=== PATIENT | female | born 1940 | race Caucasian/White ===

== ENCOUNTER → 2016-11-30 | Outpatient (CLI) | payer OTHER, MEDICARE | LOC: FIMAGING 08:00 | PROVIDERS: ATTEND Internal Medicine | DX: K57.30 Diverticulosis of large intestine without perforation or abscess without bleeding (principal); N32.89 Other specified disorders of bladder; R91.1 Solitary pulmonary nodule; Z90.710 Acquired absence of both cervix and uterus; Z90.49 Acquired absence of other specified parts of digestive tract ==

== ENCOUNTER → 2017-02-05 | Outpatient (CLI) | payer OTHER, MEDICARE | LOC: CIMAGING 12:50 | PROVIDERS: ATTEND Internal Medicine | DX: N63 Unspecified lump in breast (principal); Z79.890 Hormone replacement therapy; Z80.3 Family history of malignant neoplasm of breast | CPT/HCPCS: 76641; G0204 ==

== ENCOUNTER → 2017-03-15 | Outpatient (CLI) | payer OTHER, MEDICARE | LOC: CIMAGING 13:49 → EDSTATUS 13:51 → CIMAGING 13:52 | PROVIDERS: ATTEND Internal Medicine | DX: R05 Cough (principal); R10.31 Right lower quadrant pain; K52.9 Noninfective gastroenteritis and colitis, unspecified | CPT/HCPCS: 71020; G0463 ==

== ENCOUNTER → 2017-04-20 | Outpatient (CLI) | payer OTHER, MEDICARE | LOC: FIMAGING 10:16 | PROVIDERS: ATTEND Physical Medicine & Rehabilitation | DX: M51.36 Other intervertebral disc degeneration, lumbar region (principal); M12.88 Other specific arthropathies, not elsewhere classified, other specified site; M51.26 Other intervertebral disc displacement, lumbar region ==

== ENCOUNTER 2017-04-28 10:21 | Emergency (ER) | payer OTHER, MEDICARE ==
[2017-04-28] MEDS ORDERED: LIDOCAINE 5% 1 EA PATCH TD ONE (11:08)
--- NOTE | 2017-04-28 11:17 | EDPHY ---
H & P Stated Complaint: back pain-diagnosed with bulging disk recently Time Seen by Provider: 04/28/17 10:43 HPI/ROS: CHIEF COMPLAINT: Ongoing low back pain HISTORY OF PRESENT ILLNESS: The patient presents to the ED with ongoing low back pain. The patient does have a history of multiple spinal surgeries. The patient was recently diagnosed with a lumbar disc herniation at L1. The patient has had fairly severe pain in her left sacroiliac joint. She denies any acute numbness or weakness. The patient is currently under the care of [facility]. The patient denies bowel or bladder dysfunction. The patient denies fever or infectious symptoms. The patient reports her symptoms are moderate to severe in nature. REVIEW OF SYSTEMS: A comprehensive 10 point review of systems is otherwise negative aside from elements mentioned in the history of present illness. Source: Patient Exam Limitations: No limitations - Personal History Current Tetanus/Diphtheria Vaccine: Yes Current Tetanus Diphtheria and Acellular Pertussis (TDAP): Yes Tetanus Vaccine Date: 2010 - Medical/Surgical History Hx Asthma: Yes Hx Chronic Respiratory Disease: No Hx Diabetes: No Hx Cardiac Disease: No Hx Renal Disease: No Hx Cirrhosis: No Hx Alcoholism: No Hx HIV/AIDS: No Hx Splenectomy or Spleen Trauma: No Other PMH: Asthma very mild recently dx,osteoarthritis, closed head [id number]. right and left hammer toe surgery and has currently a left foot infection and has pin in both feet had MRSA, pt has fibromyalgia. TONSILS. APPY. HYST. THROAT POLYPS. KIDNEY STONES. BREAST REDUCTION. BACK SURGS. ROTATOR CUFF. BLADDER LIFT, MESH. GB. HEMORRHOIDS. CATERACTS. HERNIA - Social History Smoking Status: Former smoker - Physical Exam Exam: General Appearance: Elderly female, no acute distress Eyes: Pupils equal and round no pallor or injection ENT, Mouth: Mucous membranes moist Respiratory: There are no retractions, lungs are clear to auscultation Cardiovascular: Regular rate and rhythm Gastrointestinal: Abdomen is soft and nontender, no masses, bowel sounds normal Neurological: 5/5 strength noted bilateral lower extremities Skin: Warm and dry, no rashes, multiple tattoos Musculoskeletal: Tenderness to palpation noted in the left sacroiliac area, prior lumbar incision clean dry and intact Extremities: symmetrical, full range of motion Constitutional: Initial Vital Signs Temperature (C) 36.8 C 04/28/17 10:29 Heart Rate 91 04/28/17 10:29 Respiratory Rate 18 04/28/17 10:29 Blood Pressure 121/83 H 04/28/17 10:29 O2 Sat (%) 96 04/28/17 10:29 O2 Delivery Mode Room Air Allergies/Adverse Reactions: codeine [Codeine] Allergy (Severe, Verified 04/28/17 10:28) Rash erythromycin base [Erythromycin Base] Allergy (Severe, Verified 04/28/17 10:28) Rash hydromorphone HCl [From Dilaudid] Allergy (Severe, Verified 04/28/17 10:28) "Makes Me Crazy" iodine [Iodine] Allergy (Severe, Verified 04/28/17 10:28) Anaphylaxis morphine Allergy (Severe, Verified 04/28/17 10:28) "Can't Breathe" Shellfish *RETIRED-03/11/12 [Shellfish] Allergy (Severe, Verified 04/28/17 10:28 ) Anaphylaxis vancomycin Allergy (Severe, Verified 04/28/17 10:28) Loss of consciousness meperidine HCl [From Demerol] Allergy (Verified 04/28/17 10:28) mycins Allergy (Severe, Uncoded 08/06/15 08:06) Rash Home Medications: Medication Instructions Recorded Aspirin EC [Aspirin EC 81 mg (*)] 81 mg PO Q2D@1800 07/31/11 Dextroamphetamine Sulfate 5 mg PO DAILY 07/31/11 [Dexedrine 5 MG (*)] Acetaminophen [Tylenol ES 500 mg 1,000 mg PO BID PRN 05/03/15 (*)] Allopurinol [Allopurinol 300 MG 300 mg PO DAILY@18 05/03/15 (RX)] Cholecalciferol Vit D3 [Vitamin D3 2,000 units PO DAILY 05/03/15 2000 units] Estradiol [Estrace Vaginal (*)] 1 krzysztof VG HS 05/03/15 Estradiol [Estradiol 1 MG (*)] 2 mg PO DAILY@18 05/03/15 Furosemide [Lasix 20 MG (*)] 20 mg PO DAILY 05/03/15 Potassium Cl [Klor-Con 10 meq (RX)] 20 meq PO BID 05/03/15 Spironolactone [Aldactone 25 MG 50 mg PO DAILY@18 05/03/15 (*)] clonazePAM [Klonopin (*)] 0.5 mg PO DAILY 05/03/15 Diazepam 10 mg PO HS PRN 06/04/15 EPINEPHRINE [EPIPEN] 1 applic SC DAILY PRN 06/04/15 Herbals/Supplements -Info Only 1 ea PO DAILY 06/04/15 Pregabalin [Lyrica 50mg (*)] 100 mg PO BIDMEAL 08/18/15 oxyCODONE/APAP 5/325 [Percocet 1 tab PO Q3-4PRN PRN 08/18/15 5/325 (*)] traMADol [Ultram 50 mg (*)] 50 mg PO BID PRN 08/18/15 Ondansetron Odt [Zofran Odt 4 mg 4 mg PO Q4 PRN #30 tab 08/20/15 (*)] Vancomycin [Vancomycin (RX)] 250 mg PO Q6 #50 cap 10/29/15 Escitalopram Oxalate 04/28/17 Medical Decision Making - Diagnostics Imaging Results: Imaging Impressions Pelvis CT 04/28/17 11:08 Impression: 1. Status post instrumentation/fusion of the lower lumbar spine at the lumbosacral junction without hardware complication of the visualized segments. 2. Nondisplaced linear fracture within the inferior aspect of the S5 vertebral body, with mild angulation. Results called to Dr. Patricio Horner at 12:00 PM. ED Course/Re-evaluation: The patient presents to the ED with sacral pain and is noted to have a nondisplaced S5 fracture consistent with her symptoms. She is neurologically intact. The patient was given a lidocaine patch. The patient currently has narcotic medications at home. The patient will be discharged from the emergency department with instructions to continue to work with her regular physician at [facility]. The patient has seen Dr. Gambino from Radiology in the past and is requesting her contact information to have her review the utility of a intervention for additional treatment of her pain. Differential Diagnosis: Differential diagnosis considered includes pelvic fracture, sacral fracture, neurovascular injury - Data Points Medications Given: Miscellaneous Information (Patch Removal) 1 ea TD [id number] KEDAR Stop: 10/25/17 20:59 Last Admin: 04/28/17 11:36 Dose: Not Given Discontinued Medications Lidocaine (Lidoderm 5%) 1 ea TD EDNOW ONE Stop: 04/28/17 11:09 Last Admin: 04/28/17 11:33 Dose: 1 ea Departure - Departure Disposition: Home, Routine, Self-Care Clinical Impression: Sacral fracture Condition: Good Instructions: Sacral Fracture (ED) Additional Instructions: 1. Please use lidocaine patches which are available [id number] for management of your symptoms in addition to your regular narcotic medications. 2. Dr. Gambino's contact number is [phone]. Please contact her on Sunday and have her reviewed the results of your CT scan to see if additional intervention may be indicated.
[2017-04-28 13:23] VITALS: BP 138/75; PULSE 81; RESP 16; TEMP 98.6; O2SAT 98
[2017-04-28] MEDS ORDERED: PATCH REMOVAL 1 EA PATCH TD SCH (21:00)
== END 2017-04-28 13:25 | disposition home or self-care (01) ==
DX: M84.454A Pathological fracture, pelvis, initial encounter for fracture (principal); J45.909 Unspecified asthma, uncomplicated; Z87.891 Personal history of nicotine dependence; Z79.82 Long term (current) use of aspirin

== ENCOUNTER → 2017-04-28 | Outpatient (CLI) | payer OTHER, MEDICARE | LOC: FIMAGING 09:22 | PROVIDERS: ATTEND Physician Assistant Medical | DX: M51.34 Other intervertebral disc degeneration, thoracic region (principal); M99.72 Connective tissue and disc stenosis of intervertebral foramina of thoracic region; R60.0 Localized edema ==

== ENCOUNTER 2017-04-30 10:01 | Day surgery (SDC) | payer OTHER, MEDICARE ==
[2017-04-30] MEDS ORDERED: IOPAMIDOL (ISOVUE-M 300) 15 ML VIAL ONE (11:12)
[2017-04-30] MEDS ORDERED: TRIAMCINOLONE ACETONIDE 200 MG/5 ML MDV IM ONE (11:13)
== END 2017-04-30 11:46 | disposition home or self-care (01) ==
LOC: FIMAGING 10:01
PROVIDERS: ATTEND Radiology Diagnostic Radiology
PROC: 3E0S33Z Introduction of Anti-inflammatory into Epidural Space, Percutaneous Approach (ICD-10-PCS; principal; 2017-04-30)
DX: S32.10XD Unspecified fracture of sacrum, subsequent encounter for fracture with routine healing (principal); M51.34 Other intervertebral disc degeneration, thoracic region
CPT/HCPCS: J3301; Q9967

== ENCOUNTER → 2017-05-09 | Outpatient (CLI) | payer OTHER, MEDICARE | LOC: CIMAGING 14:17 | PROVIDERS: ATTEND Physician Assistant Medical | DX: M43.16 Spondylolisthesis, lumbar region (principal); M51.36 Other intervertebral disc degeneration, lumbar region; M12.88 Other specific arthropathies, not elsewhere classified, other specified site; M48.061 Spinal stenosis, lumbar region without neurogenic claudication; M99.73 Connective tissue and disc stenosis of intervertebral foramina of lumbar region; Z98.1 Arthrodesis status | CPT/HCPCS: 72131-PO ==

== ENCOUNTER → 2018-05-01 | Outpatient (CLI) | payer OTHER, MEDICARE | LOC: BRMIMAGING 10:47 | PROVIDERS: ATTEND Internal Medicine | DX: Z13.820 Encounter for screening for osteoporosis (principal); M85.89 Other specified disorders of bone density and structure, multiple sites; M48.56XA Collapsed vertebra, not elsewhere classified, lumbar region, initial encounter for fracture; Z78.1 Physical restraint status; Z98.0 Intestinal bypass and anastomosis status ==

== ENCOUNTER → 2018-05-01 | Outpatient (CLI) | payer OTHER, MEDICARE | LOC: CIMAGING 14:31 | PROVIDERS: ATTEND Internal Medicine | DX: Z12.31 Encounter for screening mammogram for malignant neoplasm of breast (principal); Z98.82 Breast implant status; Z80.3 Family history of malignant neoplasm of breast ==

== ENCOUNTER 2018-07-15 12:04 | Day surgery (SDC) | payer OTHER, MEDICARE ==
[2018-07-15] MEDS ORDERED: TRIAMCINOLONE ACETONIDE 200 MG/5 ML MDV IM ONE (12:14)
[2018-07-15] MEDS ORDERED: LIDOCAINE 1% 300 MG/30 ML SDV ONE (12:41)
[2018-07-15] MEDS ORDERED: IOPAMIDOL (ISOVUE-M 300) 15 ML VIAL ONE (12:41)
[2018-07-15] MEDS ORDERED: methylPREDNISolone SOD SUCC 125 MG/2 ML VIAL ONE (14:28)
== END 2018-07-15 15:45 | disposition home or self-care (01) ==
LOC: FIMAGING 12:04
PROVIDERS: ATTEND Radiology Diagnostic Radiology
DX: M48.04 Spinal stenosis, thoracic region (principal); Z98.1 Arthrodesis status
CPT/HCPCS: J1200; J2930; J3301; Q9967

== ENCOUNTER → 2018-10-08 | Outpatient (CLI) | payer OTHER, MEDICARE | LOC: FIMAGING 07:40 | PROVIDERS: ATTEND Internal Medicine | DX: R79.89 Other specified abnormal findings of blood chemistry (principal); R06.02 Shortness of breath; R07.9 Chest pain, unspecified | CPT/HCPCS: 71046; 78580; A9540 ==